=== PATIENT | female | born 1945 | race Caucasian/White ===

== ENCOUNTER 2017-06-26 06:09 | Inpatient (IN) | payer MEDICARE, BC ==
[2017-06-20 14:25] LABS: BASOPHILS % (AUTO) 0.4 % (0-1); EOSINOPHILS # (AUTO) 0.6 X10'3 (0-0.9); EOSINOPHILS % (AUTO) 5.4 % (0-6); LYMPHOCYTES # (AUTO) 1.8 X10'3 (1.1-4.8); MEAN CORPUSCULAR HEMOGLOBIN 29.2 PG (27.0-31.0); MEAN CORPUSCULAR HGB CONC 34.1 % (33.0-36.5); MEAN CORPUSCULAR VOLUME 85.8 FL (78-98); MEAN PLATELET VOLUME 7.2 FL (7.4-10.4); MONOCYTES # (AUTO) 0.9 X10'3 (0-0.9); MONOCYTES % (AUTO) 8.3 % (2-12); NEUTROPHILS # (AUTO) 7.4 X10'3 (1.8-7.7); NEUTROPHILS % (AUTO) 68.9 % (42-75); PRE OP HEMATOCRIT 39.8 % (35.0-45.0); PRE OP HEMOGLOBIN 13.6 g/dL (12.0-16.0); PRE OP PLATELET COUNT 458 X10'3 (140-440); RED BLOOD COUNT 4.64 X10'6 (4.20-5.60); RED CELL DISTRIBUTION WIDTH 15.1 % (11.5-14.5)
[2017-06-20 14:30] LABS: CLARITY,URINE CLEAR (Clear); COLOR,URINE STRAW (Yellow); GLUCOSE, URINE NEGATIVE (Neg); KETONES,URINE NEGATIVE (Neg); LEUKOCYTE ESTERASE ,URINE SMALL (Neg); NITRITES, URINE NEGATIVE (Neg); OCCULT BLOOD,URINE NEGATIVE (Neg); PH,URINE 5.5 (4.8-8.0); PROTEIN,URINE NEGATIVE (Neg); UROBILINOGEN,URINE 0.2 E.U/dL (0.2-1.0)
[2017-06-20 14:31] LABS: UA COLLECTION TYPE CLN CATCH MIDSTREAM
[2017-06-20 14:36] LABS: PRE OP PROTIME 10.3 SECONDS (9.0-12.0)
[2017-06-20 14:39] LABS: MUCUS STRANDS FEW /LPF (Neg); TRANSITIONAL EPI CELLS,URINE MODERATE /HPF
[2017-06-20 14:40] LABS: BACTERIA,URINE FEW /HPF (Neg); RBC,URINE 0-2 /HPF (0-2); SQUAMOUS EPITHELIAL CELL,UR MODERATE /LPF (FEW); WBC,URINE 0-4 /HPF (0-4)
[2017-06-20 14:41] LABS: WBC CLUMPS,URINE FEW /HPF (NEGATIVE)
[2017-06-20 14:42] LABS: ALBUMIN 3.8 G/DL (3.4-5.0); ALKALINE PHOSPHATASE 146 IU/L (46-116); BLOOD UREA NITROGEN 17 MG/DL (7-18); BUN/CREATININE RATIO 14.8 (6.6-38.0); CHLORIDE 103 MMOL/L (99-107); CREATININE 1.15 MG/DL (0.40-0.90); PRE OP ALT 23 U/L (30-65); PRE OP ANION GAP 11 (8-16); PRE OP AST 12 U/L (10-37); PRE OP BILIRUB, TOTAL 0.4 MG/DL (0.0-1.0); PRE OP GLUCOSE 103 MG/DL (70-104); PRE OP POTASSIUM 4.1 MMOL/L (3.4-5.1); PRE OP SODIUM 141 MMOL/L (135-145); TOTAL PROTEIN 7.8 G/DL (6.4-8.2); eGFR 46 ML/MIN
[~2017-06-26] VITALS: Ht 154.9 cm; Wt 83.1 kg
[~2017-06-26 06:09] MED LIST: ALPR-623 PO; FLUO40CA10 PO; LAMO100T2 PO; LEVO100T PO; PRAM0.253 PO; PRAZ5CAP PO; TEMA30CA5 PO; acetaminophen 325mg tablet PO ONE; cefazolin/dext.iso 2gm/50ml 50 ML IV ONE; famotidine 20mg tablet PO ONE; gabapentin 300mg capsule PO ONE; metoclopramide 5 mg/ml inj IV ONE; oxyCODONE SR 10mg (sust. release) tab PO ONE; ringers solution, lacted 1,000 ML IV SCH; tranexamic acid inj. 1,000 MG in normal saline 100ml IV soln 90 ML IV ONE; vancomycin inj 1,500 MG in normal saline 300ml IV soln IV ONE
[2017-06-26] MEDS ORDERED: LIDOcaine 1% (10mg/ml) 2ml vial ONE (06:42)
[2017-06-26] MEDS ORDERED: MORPHINE SULFATE/PF 0.5 MG/ML 10ML AMPUL ONE (07:04)
[2017-06-26] MEDS ORDERED: ketorolac trometh. 30mg/ml inj. ONE (07:04)
[2017-06-26] MEDS ORDERED: ROPIVAcaine 0.5% (5mg/ml) 30ml vial ONE (07:04)
[2017-06-26 07:48] VITALS: BP 123/68
[2017-06-26 07:51] VITALS: BP 123/68
== END 2017-06-26 08:00 | disposition home or self-care (01) | DRG 554 ==
LOC: PAS IN 06:09 → EDSTATUS 08:30
PROVIDERS: ADMIT Orthopaedic Surgery; ATTEND Orthopaedic Surgery
DX: M17.11 Unilateral primary osteoarthritis, right knee (principal); Z53.09 Procedure and treatment not carried out because of other contraindication
CPT/HCPCS: 36415; 80053; 81001; 85025; 85610; 85730; 87070; 87088; 93005; J0690; J1885; J2274; J2795; J3370; J3490; J7030; J7120

== ENCOUNTER 2017-07-17 05:22 | Inpatient (IN) | payer MEDICARE, BC ==
[2017-07-17] VITALS (19 sets, daily range): BP systolic 116–147; BP diastolic 51–90
[~2017-07-17] VITALS: Ht 154.9 cm; Wt 81.6 kg
[~2017-07-17 05:22] MED LIST changes: -acetaminophen 325mg tablet PO ONE; -cefazolin/dext.iso 2gm/50ml 50 ML IV ONE; -famotidine 20mg tablet PO ONE; -gabapentin 300mg capsule PO ONE; -metoclopramide 5 mg/ml inj IV ONE; -oxyCODONE SR 10mg (sust. release) tab PO ONE; -tranexamic acid inj. 1,000 MG in normal saline 100ml IV soln 90 ML IV ONE; -vancomycin inj 1,500 MG in normal saline 300ml IV soln IV ONE
[2017-07-17] MEDS ORDERED: tranexamic acid inj. 1,000 MG in normal saline 100ml IV soln 90 ML IV ONE (05:30)
[2017-07-17] MEDS ORDERED: famotidine 20mg tablet PO ONE ×2 (05:30→12:20)
[2017-07-17] MEDS ORDERED: acetaminophen 325mg tablet PO ONE (05:30)
[2017-07-17] MEDS ORDERED: cefazolin/dext.iso 2gm/50ml 50 ML IV ONE (05:30)
[2017-07-17] MEDS ORDERED: metoclopramide 5 mg/ml inj IV ONE (05:30)
[2017-07-17] MEDS ORDERED: vancomycin inj 1,500 MG in normal saline 300ml IV soln IV ONE (05:30)
[2017-07-17] MEDS ORDERED: gabapentin 300mg capsule PO ONE (05:30)
[2017-07-17] MEDS ORDERED: oxyCODONE SR 10mg (sust. release) tab PO ONE (05:30)
[2017-07-17] MEDS ORDERED: metoclopramide 10mg tablet PO ONE (06:10)
[2017-07-17] MEDS ORDERED: LIDOcaine 1% (10mg/ml) 2ml vial ONE (06:12)
[2017-07-17] MEDS ORDERED: MORPHINE SULFATE/PF 0.5 MG/ML 10ML AMPUL ONE ×3 (06:54→07:39)
[2017-07-17] MEDS ORDERED: ketorolac trometh. 30mg/ml inj. ONE (06:54)
[2017-07-17] MEDS ORDERED: vancomycin 1,000mg inj ONE (06:55)
[2017-07-17] MEDS ORDERED: ROPIVAcaine 0.5% (5mg/ml) 30ml vial ONE ×2 (06:55→07:33)
[2017-07-17] MEDS ORDERED: ceFAZolin 1000mg inj ONE (06:55)
[2017-07-17 06:59] LABS: BASOPHILS % (AUTO) 0.4 % (0-1); EOSINOPHILS # (AUTO) 0.9 X10'3 (0-0.9); EOSINOPHILS % (AUTO) 9.5 % (0-6); LYMPHOCYTES # (AUTO) 1.6 X10'3 (1.1-4.8); LYMPHOCYTES % (AUTO) 15.9 % (21-51); MEAN CORPUSCULAR HEMOGLOBIN 29.6 PG (27.0-31.0); MEAN CORPUSCULAR HGB CONC 34.1 % (33.0-36.5); MEAN CORPUSCULAR VOLUME 86.7 FL (78-98); MEAN PLATELET VOLUME 7.1 FL (7.4-10.4); MONOCYTES # (AUTO) 0.7 X10'3 (0-0.9); NEUTROPHILS # (AUTO) 6.7 X10'3 (1.8-7.7); NEUTROPHILS % (AUTO) 67.2 % (42-75); PRE OP HEMATOCRIT 41.3 % (35.0-45.0); PRE OP HEMOGLOBIN 14.1 g/dL (12.0-16.0); PRE OP PLATELET COUNT 352 X10'3 (140-440); RED BLOOD COUNT 4.77 X10'6 (4.20-5.60); RED CELL DISTRIBUTION WIDTH 14.6 % (11.5-14.5)
[2017-07-17 07:09] LABS: PRE OP PROTIME 10.1 SECONDS (9.0-12.0)
[2017-07-17 07:22] LABS: ALBUMIN 3.7 G/DL (3.4-5.0); ALBUMIN/GLOBULIN RATIO 0.8 (1.1-1.5); ALKALINE PHOSPHATASE 152 IU/L (46-116); BLOOD UREA NITROGEN 17 MG/DL (7-18); CALCIUM 9.4 MG/DL (8.5-10.1); CHLORIDE 102 MMOL/L (99-107); PRE OP ALT 26 U/L (30-65); PRE OP ANION GAP 12 (8-16); PRE OP AST 15 U/L (10-37); PRE OP BILIRUB, TOTAL 0.4 MG/DL (0.0-1.0); PRE OP GLUCOSE 99 MG/DL (70-104); PRE OP POTASSIUM 4.3 MMOL/L (3.4-5.1); PRE OP SODIUM 140 MMOL/L (135-145); TOTAL CARBON DIOXIDE 25.8 MMOL/L (24-32); TOTAL PROTEIN 8.2 G/DL (6.4-8.2); eGFR 54 ML/MIN
[2017-07-17] MEDS ORDERED: midazolam 2 mg/2 ml injection ONE (07:24)
[2017-07-17] MEDS ORDERED: cloNIDine hcl/PF 100mcg/ml inj ONE (07:33)
[2017-07-17] MEDS ORDERED: tetracaine 1% (10mg/ml) pres. free inj. ONE (07:34)
[2017-07-17] MEDS ORDERED: fentaNYL/PF 50MCG/1 ML 2ML syringe ONE (07:39)
[2017-07-17] MEDS ORDERED: MIDAZolam 5mg/ml 2ml vial ONE (07:39)
[2017-07-17] MEDS ORDERED: ePHEDrine 50MG/ML INJ. ONE (08:09)
[2017-07-17] MEDS ORDERED: naloxone 2mg/2ml inj 2 MG in normal saline 500ml IV soln 500 ML IV PRN (08:46)
[2017-07-17] MEDS ORDERED: ringers solution, lacted 1,000 ML IV SCH (08:46)
[2017-07-17] MEDS ORDERED: meperidine/PF 50mg/ml syringe IV PRN ×3 (08:50)
[2017-07-17] MEDS ORDERED: ondansetron/PF 4mg/2ml inj IV PRN ×2 (08:50)
[2017-07-17] MEDS ORDERED: diphenhydrAMINE 50 mg/ml inj IV PRN (08:50)
[2017-07-17] MEDS ORDERED: proCHLORperazine 10 MG/2 ml inj IV PRN (08:50)
[2017-07-17] MEDS ORDERED: morphine 2 MG/ML inj. syringe IV PRN ×3 (08:50→22:35)
[2017-07-17] MEDS ORDERED: propofol inj 20 ML IV ONE (09:06)
[2017-07-17] MEDS ORDERED: diphenhydrAMINE 25mg capsule PO PRN ×2 (10:30)
[2017-07-17] MEDS ORDERED: acetaminophen 325mg tablet PO PRN (10:30)
[2017-07-17] MEDS ORDERED: oxyCODONE IR 5mg (immed. release) tablet PO PRN (10:30)
[2017-07-17] MEDS ORDERED: magnesium hydroxide 30ml (MOM) UD suspension PO PRN (10:30)
[2017-07-17] MEDS ORDERED: bisacodyl 10mg suppository rectal RC PRN (10:30)
[2017-07-17] MEDS ORDERED: HYDROmorphone inj. 0.5 MG/0.5 ML DISP.SYRIN IV PRN (10:30)
[2017-07-17] MEDS ORDERED: tranexamic acid inj. 800 MG in normal saline 100ml IV soln 100 ML IV ONE (14:00)
[2017-07-17] MEDS: gabapentin 300mg capsule PO SCH ×2 (14:42→22:18)
[2017-07-17] MEDS: acetaminophen 325mg tablet PO SCH ×2 (14:44→20:00)
[2017-07-17] MEDS: cefazolin 1gm/NS 100mL 100 ML IV SCH (15:41)
[2017-07-17] MEDS: potassium cl 20mEq in 1/2 NS 1,000 ML IV SCH ×2 (16:40→18:29)
[2017-07-17] MEDS: ondansetron/PF 4mg/2ml inj IV PRN (19:51)
[2017-07-17] MEDS ORDERED: vancomycin/NS 1 GM ADD-VANTAGE 250 ML IV SCH (20:00)
[2017-07-17] MEDS: albuterol 2.5 MG/3 ML nebule NEB PRN (20:22)
[2017-07-17] MEDS: celeCOXIB 100mg capsule PO SCH (20:43)
[2017-07-17] MEDS: oxyCODONE IR 5mg (immed. release) tablet PO PRN (22:10)
[2017-07-17] MEDS: pramipexole 0.25mg tablet PO SCH (22:18)
[2017-07-17] MEDS: lamoTRIgine 100mg tablet PO SCH (22:18)
[2017-07-17] MEDS: prazosin 5mg capsule PO SCH (22:18)
[2017-07-17] MEDS: temazepam 15mg capsule PO SCH (22:19)
[2017-07-17] MEDS: sennosides 8.6mg tablet PO SCH (22:19)
[2017-07-17] MEDS ORDERED: morphine 4 MG/ML inj SYRINge IV PRN (22:35)
[2017-07-18] VITALS (7 sets, daily range): BP systolic 93–149; BP diastolic 53–92
[2017-07-18] MEDS: morphine 4 MG/ML inj SYRINge IV PRN ×2 (00:11→04:43)
[2017-07-18] MEDS: cefazolin 1gm/NS 100mL 100 ML IV SCH (00:11)
[2017-07-18] MEDS: acetaminophen 325mg tablet PO SCH ×4 (02:00→20:11)
[2017-07-18] MEDS: ondansetron/PF 4mg/2ml inj IV PRN (02:38)
[2017-07-18] MEDS: potassium cl 20mEq in 1/2 NS 1,000 ML IV SCH ×3 (02:44→18:10)
[2017-07-18] MEDS: oxyCODONE IR 5mg (immed. release) tablet PO PRN (06:38)
[2017-07-18 07:02] LABS: BASOPHILS % (AUTO) 0.1 % (0-1); EOSINOPHILS # (AUTO) 0.8 X10'3 (0-0.9); EOSINOPHILS % (AUTO) 7.5 % (0-6); HEMATOCRIT 34.6 % (35.0-45.0); HEMOGLOBIN 11.7 g/dl (12.0-16.0); LYMPHOCYTES # (AUTO) 0.9 X10'3 (1.1-4.8); MEAN CORPUSCULAR HEMOGLOBIN 29.5 PG (27.0-31.0); MEAN CORPUSCULAR HGB CONC 33.9 % (33.0-36.5); MEAN CORPUSCULAR VOLUME 87.3 FL (78-98); MEAN PLATELET VOLUME 7.3 FL (7.4-10.4); MONOCYTES % (AUTO) 8.9 % (2-12); NEUTROPHILS # (AUTO) 8.2 X10'3 (1.8-7.7); NEUTROPHILS % (AUTO) 75.5 % (42-75); PLATELET COUNT 280 X10'3 (140-440); RED BLOOD COUNT 3.97 X10'6 (4.20-5.60); RED CELL DISTRIBUTION WIDTH 14.7 % (11.5-14.5); WHITE BLOOD COUNT 10.9 X10'3 (4.5-11.0)
[2017-07-18 07:17] LABS: ANION GAP 9 (8-16); CHLORIDE 100 MMOL/L (99-107); POTASSIUM 4.9 MMOL/L (3.5-5.1); SODIUM 135 MMOL/L (135-145); TOTAL CARBON DIOXIDE 26.2 MMOL/L (24-32)
[2017-07-18] MEDS: celeCOXIB 100mg capsule PO SCH ×2 (09:14→20:11)
[2017-07-18] MEDS: levoTHYROXINE 100mcg tablet PO SCH (09:14)
[2017-07-18] MEDS: enoxaparin 30mg/0.3ml syringe SQ SCH (09:14)
[2017-07-18] MEDS: FLUoxetine 20mg capsule PO SCH (09:15)
[2017-07-18] MEDS: gabapentin 300mg capsule PO SCH ×3 (09:15→20:12)
[2017-07-18] MEDS: albuterol 2.5 MG/3 ML nebule NEB PRN (10:24)
[2017-07-18] MEDS ORDERED: oxyCODONE/APAP 10/325mg tablet PO PRN (10:45)
[2017-07-18] MEDS: oxyCODONE/APAP 10/325mg tablet PO PRN ×3 (11:03→21:52)
[2017-07-18] MEDS: Protein Smoothie (high protein) 240ml (8oz) cup PO SCH (18:00)
[2017-07-18] MEDS: temazepam 15mg capsule PO SCH (20:11)
[2017-07-18] MEDS: sennosides 8.6mg tablet PO SCH (20:11)
[2017-07-18] MEDS: pramipexole 0.25mg tablet PO SCH (20:12)
[2017-07-18] MEDS: prazosin 5mg capsule PO SCH (20:12)
[2017-07-18] MEDS: lamoTRIgine 100mg tablet PO SCH (20:12)
[2017-07-19] MEDS: oxyCODONE/APAP 10/325mg tablet PO PRN ×5 (01:50→17:51)
[2017-07-19] MEDS: acetaminophen 325mg tablet PO SCH ×2 (01:51→07:58)
[2017-07-19] MEDS: albuterol 2.5 MG/3 ML nebule NEB PRN (02:08)
[2017-07-19 05:00] VITALS: BP 117/48
[2017-07-19 06:38] LABS: BASOPHILS % (AUTO) 0.3 % (0-1); EOSINOPHILS # (AUTO) 1.1 X10'3 (0-0.9); EOSINOPHILS % (AUTO) 11.1 % (0-6); HEMATOCRIT 30.8 % (35.0-45.0); HEMOGLOBIN 10.6 g/dl (12.0-16.0); LYMPHOCYTES # (AUTO) 1.2 X10'3 (1.1-4.8); LYMPHOCYTES % (AUTO) 11.5 % (21-51); MEAN CORPUSCULAR HGB CONC 34.6 % (33.0-36.5); MEAN CORPUSCULAR VOLUME 86.7 FL (78-98); MEAN PLATELET VOLUME 7.6 FL (7.4-10.4); MONOCYTES # (AUTO) 1.1 X10'3 (0-0.9); MONOCYTES % (AUTO) 11.4 % (2-12); NEUTROPHILS # (AUTO) 6.6 X10'3 (1.8-7.7); NEUTROPHILS % (AUTO) 65.7 % (42-75); PLATELET COUNT 227 X10'3 (140-440); RED BLOOD COUNT 3.55 X10'6 (4.20-5.60); RED CELL DISTRIBUTION WIDTH 14.3 % (11.5-14.5)
[2017-07-19] MEDS: levoTHYROXINE 100mcg tablet PO SCH (08:00)
[2017-07-19] MEDS: gabapentin 300mg capsule PO SCH ×3 (08:00→20:08)
[2017-07-19] MEDS: celeCOXIB 100mg capsule PO SCH ×2 (08:00→20:09)
[2017-07-19] MEDS: FLUoxetine 20mg capsule PO SCH (08:00)
[2017-07-19] MEDS: enoxaparin 30mg/0.3ml syringe SQ SCH (08:01)
[2017-07-19] MEDS: Protein Smoothie (high protein) 240ml (8oz) cup PO SCH ×3 (09:22→20:08)
[2017-07-19] MEDS ORDERED: acetaminophen 325mg tablet PO PRN (10:30)
[2017-07-19] MEDS: ondansetron/PF 4mg/2ml inj IV PRN (12:28)
[2017-07-19 18:00] VITALS: BP 130/49
[2017-07-19] MEDS: pramipexole 0.25mg tablet PO SCH (20:08)
[2017-07-19] MEDS: sennosides 8.6mg tablet PO SCH (20:08)
[2017-07-19] MEDS: lamoTRIgine 100mg tablet PO SCH (20:09)
[2017-07-19] MEDS: temazepam 15mg capsule PO SCH (20:09)
[2017-07-19] MEDS: prazosin 5mg capsule PO SCH (20:09)
[2017-07-19 22:00] VITALS: BP 125/54
[2017-07-20] MEDS: albuterol 2.5 MG/3 ML nebule NEB PRN ×2 (05:31→12:14)
[2017-07-20 06:00] VITALS: BP 101/43
[2017-07-20 06:34] LABS: BASOPHILS % (AUTO) 0.2 % (0-1); EOSINOPHILS # (AUTO) 0.9 X10'3 (0-0.9); EOSINOPHILS % (AUTO) 8.6 % (0-6); HEMATOCRIT 29.8 % (35.0-45.0); HEMOGLOBIN 10.4 g/dl (12.0-16.0); LYMPHOCYTES # (AUTO) 1.1 X10'3 (1.1-4.8); LYMPHOCYTES % (AUTO) 10.9 % (21-51); MEAN CORPUSCULAR HEMOGLOBIN 29.7 PG (27.0-31.0); MEAN CORPUSCULAR HGB CONC 34.8 % (33.0-36.5); MEAN CORPUSCULAR VOLUME 85.4 FL (78-98); MEAN PLATELET VOLUME 7.5 FL (7.4-10.4); MONOCYTES # (AUTO) 1.2 X10'3 (0-0.9); MONOCYTES % (AUTO) 11.7 % (2-12); NEUTROPHILS # (AUTO) 6.9 X10'3 (1.8-7.7); NEUTROPHILS % (AUTO) 68.6 % (42-75); PLATELET COUNT 261 X10'3 (140-440); RED BLOOD COUNT 3.49 X10'6 (4.20-5.60); RED CELL DISTRIBUTION WIDTH 14.1 % (11.5-14.5); WHITE BLOOD COUNT 10.1 X10'3 (4.5-11.0)
[2017-07-20] MEDS: levoTHYROXINE 100mcg tablet PO SCH (08:58)
[2017-07-20] MEDS: gabapentin 300mg capsule PO SCH ×3 (08:58→20:04)
[2017-07-20] MEDS: ALPRAZolam 0.25mg tablet PO PRN ×2 (08:58→17:43)
[2017-07-20] MEDS: celeCOXIB 100mg capsule PO SCH ×2 (08:58→20:01)
[2017-07-20] MEDS: FLUoxetine 20mg capsule PO SCH (08:58)
[2017-07-20] MEDS: enoxaparin 30mg/0.3ml syringe SQ SCH (08:59)
[2017-07-20] MEDS: Protein Smoothie (high protein) 240ml (8oz) cup PO SCH ×3 (08:59→18:00)
[2017-07-20 11:00] VITALS: BP 119/52
[2017-07-20 13:26] LABS: LIPASE 50 U/L (73-393); PHOSPHORUS 2.9 MG/DL (2.3-4.5); TROPONIN I < 0.04 NG/ML (0.0-0.05)
[2017-07-20 14:18] LABS: CLARITY,URINE Clear (Clear); GLUCOSE, URINE Negative (Neg); KETONES,URINE Negative (Neg); LEUKOCYTE ESTERASE ,URINE Negative (Neg); NITRITES, URINE Negative (Neg); OCCULT BLOOD,URINE Negative (Neg); PROTEIN,URINE Negative (Neg); UA COLLECTION TYPE CLN CATCH MIDSTREAM; UROBILINOGEN,URINE 0.2 E.U/dL (0.2-1.0)
[2017-07-20 14:19] LABS: COLOR,URINE STRAW (Yellow)
[2017-07-20 18:00] VITALS: BP 114/54
[2017-07-20] MEDS: sennosides 8.6mg tablet PO SCH (19:59)
[2017-07-20] MEDS: lamoTRIgine 100mg tablet PO SCH (20:00)
[2017-07-20] MEDS: temazepam 15mg capsule PO SCH (20:00)
[2017-07-20] MEDS: prazosin 5mg capsule PO SCH (20:00)
[2017-07-20] MEDS: pramipexole 0.25mg tablet PO SCH (20:01)
[2017-07-20 20:32] LABS: PROTHROMBIN TIME 10.3 SECONDS (9.0-12.0)
[2017-07-20] MEDS: normal saline 1000ml 1,000 ML IV SCH ×2 (20:33→22:16)
[2017-07-20] MEDS ORDERED: warfarin 5mg tablet PO ONE (21:00)
[2017-07-20 22:00] VITALS: BP 105/46
[2017-07-21] MEDS: ALPRAZolam 0.25mg tablet PO PRN (00:58)
[2017-07-21 05:00] VITALS: BP 123/46
[2017-07-21] MEDS: oxyCODONE/APAP 10/325mg tablet PO PRN (05:44)
[2017-07-21 06:31] LABS: PROTHROMBIN TIME 10.4 SECONDS (9.0-12.0)
[2017-07-21] MEDS: Protein Smoothie (high protein) 240ml (8oz) cup PO SCH (07:55)
[2017-07-21] MEDS: FLUoxetine 20mg capsule PO SCH (08:09)
[2017-07-21] MEDS: levoTHYROXINE 100mcg tablet PO SCH (08:09)
[2017-07-21] MEDS: gabapentin 300mg capsule PO SCH (08:09)
[2017-07-21] MEDS: celeCOXIB 100mg capsule PO SCH (08:09)
[2017-07-21] MEDS: enoxaparin 30mg/0.3ml syringe SQ SCH (08:09)
[2017-07-21 10:23] VITALS: BP 120/50
== END 2017-07-21 13:00 | disposition home or self-care (01) | DRG 470 ==
LOC: PAS IN 05:22 → EDSTATUS 07:30 → ORTHO 4S 11:45
PROVIDERS: ADMIT Orthopaedic Surgery; ATTEND Family Medicine
PROC: 3E0T3BZ Introduction of Anesthetic Agent into Peripheral Nerves and Plexi, Percutaneous Approach (ICD-10-PCS; 2017-07-17)
PROC: 0SRC069 Replacement of Right Knee Joint with Oxidized Zirconium on Polyethylene Synthetic Substitute, Cemented, Open Approach (ICD-10-PCS; principal; 2017-07-17 07:36)
DX: M17.11 Unilateral primary osteoarthritis, right knee (principal); N17.9 Acute kidney failure, unspecified; E66.01 Morbid (severe) obesity due to excess calories; E86.0 Dehydration; N39.0 Urinary tract infection, site not specified; E03.9 Hypothyroidism, unspecified; K21.9 Gastro-esophageal reflux disease without esophagitis; F32.9 Major depressive disorder, single episode, unspecified; F41.9 Anxiety disorder, unspecified; M25.751 Osteophyte, right hip; G89.4 Chronic pain syndrome; R09.02 Hypoxemia; Z79.891 Long term (current) use of opiate analgesic; Z79.899 Other long term (current) drug therapy; Z87.891 Personal history of nicotine dependence; Z68.34 Body mass index [BMI] 34.0-34.9, adult
CPT/HCPCS: 36415; 71250; 80051; 80053; 81003; 83036; 83690; 83735; 83880; 84100; 84439; 84443; 84480; 84484; 85025; 85610; 85730; 87070; 93005; 93306; 94640; 94760; 97110; 97116; 97161; 97530; A6455; A7000; C1713; C1758; C1776; C9250; J0690; J0735; J1650; J1885; J2250; J2270; J2274; J2310; J2405; J2704; J2795; J3010; J3370; J3490; J7030; J7120; J8597

== ENCOUNTER 2017-07-26 16:24 | Inpatient (IN) | payer MEDICARE, BC ==
[~2017-07-26] VITALS: Ht 154.9 cm; Wt 83.6 kg
[~2017-07-26 16:24] MED LIST changes: -ringers solution, lacted 1,000 ML IV SCH
[2017-07-26 17:10] LABS: BASOPHILS # (AUTO) 0.1 X10'3 (0-0.2); BASOPHILS % (AUTO) 0.3 % (0-1); EOSINOPHILS # (AUTO) 0.2 X10'3 (0-0.9); EOSINOPHILS % (AUTO) 0.9 % (0-6); HEMATOCRIT 34.5 % (35.0-45.0); HEMOGLOBIN 11.6 g/dl (12.0-16.0); LYMPHOCYTES # (AUTO) 0.8 X10'3 (1.1-4.8); LYMPHOCYTES % (AUTO) 4.4 % (21-51); MEAN CORPUSCULAR HEMOGLOBIN 29.4 PG (27.0-31.0); MEAN CORPUSCULAR HGB CONC 33.8 % (33.0-36.5); MEAN PLATELET VOLUME 6.3 FL (7.4-10.4); MONOCYTES # (AUTO) 1.3 X10'3 (0-0.9); MONOCYTES % (AUTO) 6.8 % (2-12); NEUTROPHILS % (AUTO) 87.6 % (42-75); PLATELET COUNT 293 X10'3 (140-440); RED BLOOD COUNT 3.96 X10'6 (4.20-5.60); RED CELL DISTRIBUTION WIDTH 14.9 % (11.5-14.5); WHITE BLOOD COUNT 19.4 X10'3 (4.5-11.0)
[2017-07-26 17:22] LABS: D-DIMER 3.32 MG/L FEU (0-0.50); INR 1.1 INR; PARTIAL THROMBOPLASTIN TIME 36 SECONDS (22-32); PROTHROMBIN TIME 11.4 SECONDS (9.0-12.0)
[2017-07-26 17:32] LABS: ALANINE AMINOTRANSFERASE 21 U/L (12-78); ALBUMIN 2.9 G/DL (3.4-5.0); ALBUMIN/GLOBULIN RATIO 0.6 (1.1-1.5); ALKALINE PHOSPHATASE 131 IU/L (46-116); ANION GAP 12 (8-16); ASPARTATE AMINO TRANSFERASE 24 U/L (10-37); BILIRUBIN,TOTAL 0.6 MG/DL (0.1-1.0); BLOOD UREA NITROGEN 9 MG/DL (7-18); BUN/CREATININE RATIO 9.1 (6.6-38.0); CALCIUM 8.6 MG/DL (8.5-10.1); CHLORIDE 100 MMOL/L (99-107); CREATININE 0.99 MG/DL (0.40-0.90); GLUCOSE 182 MG/DL (70-104); MAGNESIUM 2.2 MG/DL (1.5-2.4); POTASSIUM 3.8 MMOL/L (3.5-5.1); SODIUM 137 MMOL/L (135-145); TOTAL CARBON DIOXIDE 25.5 MMOL/L (24-32); TOTAL PROTEIN 7.5 G/DL (6.4-8.2); eGFR 55 ML/MIN
[2017-07-26] MEDS ORDERED: enoxaparin 100mg/ml syringe SUBCUT ONE (17:35)
[2017-07-26] MEDS ORDERED: morphine 4 MG/ML inj SYRINge IV ONE ×2 (17:45→20:50)
[2017-07-26] MEDS ORDERED: ZIPR40CA2 PO (17:55)
[2017-07-26] MEDS ORDERED: NYST50002 PO (17:55)
[2017-07-26] MEDS ORDERED: LISD60CA PO (17:55)
[2017-07-26] MEDS ORDERED: METH-360 PO (17:55)
[2017-07-26] MEDS ORDERED: LAMO100T89 PO (17:55)
[2017-07-26] MEDS ORDERED: RISP0.5T3 PO (17:55)
[2017-07-26] MEDS ORDERED: SIME180C34 PO (17:55)
[2017-07-26] MEDS ORDERED: heparin 10,000 units/1 ML INJ IV PRN (18:00)
[2017-07-26] MEDS ORDERED: heparin 10,000 units/1 ML INJ IV ONE (18:00)
[2017-07-26] MEDS ORDERED: metoprolol tartrate 1mg/ml inj IV ONE (18:10)
[2017-07-26] MEDS: nitroGLYCERIN 0.4mg SUBLingual tab SL PRN ×2 (18:16→19:11)
[2017-07-26] MEDS: tirofiban 5mg in NS 100mL 100 ML IV SCH (18:59)
[2017-07-26] MEDS ORDERED: nitroGLYCERIN 1gm ointment UD TP ONE (20:50)
[2017-07-26] MEDS ORDERED: temazepam 15mg capsule PO PRN (21:00)
[2017-07-26] MEDS: normal saline 1000ml 1,000 ML IV SCH ×2 (21:20→23:00)
[2017-07-26] MEDS ORDERED: magnesium Cl slow-release 64mg tablet PO PRN (22:00)
[2017-07-26] MEDS ORDERED: potassium Cl 40MEQ/NS 500ml 500 ML IV PRN ×2 (22:00)
[2017-07-26] MEDS ORDERED: magnesium 4gm in 100ml NS 100 ML IV PRN (22:00)
[2017-07-26] MEDS ORDERED: potassium Cl 20 mEq SR tablet PO PRN ×2 (22:00)
[2017-07-26] MEDS ORDERED: mag hydrox/Alum hydrox/simeth 30ml oral suspension PO PRN (22:00)
[2017-07-26] MEDS ORDERED: ondansetron/PF 4mg/2ml inj IV PRN (22:00)
[2017-07-26] MEDS ORDERED: morphine 4 MG/ML inj SYRINge IV PRN (22:00)
[2017-07-26] MEDS ORDERED: magnesium hydroxide 30ml (MOM) UD suspension PO PRN (22:00)
[2017-07-26] MEDS ORDERED: magnesium 2GM in 50ml NS 50 ML IV PRN (22:00)
[2017-07-26] MEDS ORDERED: acetaminophen 325mg tablet PO PRN (22:00)
[2017-07-26 23:19] LABS: HEMOGLOBIN A1C 5.5 % (4.5-6.2)
[2017-07-26 23:30] VITALS: BP 150/61
[2017-07-27] VITALS (14 sets, daily range): BP systolic 109–146; BP diastolic 48–74
[2017-07-27] MEDS: tirofiban 5mg in NS 100mL 100 ML IV SCH (00:55)
[2017-07-27] MEDS: normal saline 1000ml 1,000 ML IV SCH ×2 (01:17→08:21)
[2017-07-27] MEDS: morphine 4 MG/ML inj SYRINge IV PRN ×2 (01:26→07:14)
[2017-07-27 06:42] LABS: BASOPHILS % (AUTO) 0.1 % (0-1); EOSINOPHILS # (AUTO) 0.5 X10'3 (0-0.9); EOSINOPHILS % (AUTO) 2.9 % (0-6); HEMATOCRIT 34.4 % (35.0-45.0); HEMOGLOBIN 11.8 g/dl (12.0-16.0); LYMPHOCYTES # (AUTO) 1.7 X10'3 (1.1-4.8); LYMPHOCYTES % (AUTO) 10.6 % (21-51); MEAN CORPUSCULAR HEMOGLOBIN 29.3 PG (27.0-31.0); MEAN CORPUSCULAR HGB CONC 34.3 % (33.0-36.5); MEAN CORPUSCULAR VOLUME 85.6 FL (78-98); MEAN PLATELET VOLUME 7.1 FL (7.4-10.4); MONOCYTES # (AUTO) 1.2 X10'3 (0-0.9); MONOCYTES % (AUTO) 7.7 % (2-12); NEUTROPHILS # (AUTO) 12.6 X10'3 (1.8-7.7); NEUTROPHILS % (AUTO) 78.7 % (42-75); PLATELET COUNT 294 X10'3 (140-440); RED BLOOD COUNT 4.02 X10'6 (4.20-5.60); RED CELL DISTRIBUTION WIDTH 14.8 % (11.5-14.5); WHITE BLOOD COUNT 15.9 X10'3 (4.5-11.0)
[2017-07-27 06:58] LABS: ALANINE AMINOTRANSFERASE 25 U/L (12-78); ALBUMIN 2.9 G/DL (3.4-5.0); ALBUMIN/GLOBULIN RATIO 0.6 (1.1-1.5); ALKALINE PHOSPHATASE 127 IU/L (46-116); ANION GAP 11 (8-16); ASPARTATE AMINO TRANSFERASE 51 U/L (10-37); BILIRUBIN,TOTAL 0.6 MG/DL (0.1-1.0); BLOOD UREA NITROGEN 11 MG/DL (7-18); BUN/CREATININE RATIO 13.1 (6.6-38.0); CALCIUM 8.8 MG/DL (8.5-10.1); CHLORIDE 102 MMOL/L (99-107); CHOL/HDL RATIO 4.6 (0.00-4.99); CHOLESTEROL 196 MG/DL (0-200); CREATININE 0.84 MG/DL (0.40-0.90); GLUCOSE 127 MG/DL (70-104); HDL CHOLESTEROL 43 MG/DL (35-60); LDL CHOLESTEROL 118 MG/DL (50-100); MAGNESIUM 2.4 MG/DL (1.5-2.4); POTASSIUM 3.8 MMOL/L (3.5-5.1); SODIUM 140 MMOL/L (135-145); TOTAL CARBON DIOXIDE 26.7 MMOL/L (24-32); TOTAL PROTEIN 7.6 G/DL (6.4-8.2); TRIGLYCERIDES 143 MG/DL (20-135); eGFR 66 ML/MIN
[2017-07-27] MEDS: levoTHYROXINE 100mcg tablet PO SCH (07:25)
[2017-07-27] MEDS: risperiDONE 0.5mg tablet PO SCH ×2 (08:00→20:26)
[2017-07-27] MEDS ORDERED: non-formulary drug (Ziprasidone Hcl (Geodon) 1 CAP) PO SCH (08:00)
[2017-07-27] MEDS ORDERED: METHOCARBAMOL PO SCH (08:00)
[2017-07-27] MEDS: K and/or MAG REPLACEMENT MC SCH (08:00)
[2017-07-27] MEDS ORDERED: levoTHYROXINE 100mcg tablet PO SCH (08:00)
[2017-07-27] MEDS ORDERED: FLUOXETINE HCL PO SCH (08:00)
[2017-07-27] MEDS ORDERED: HYDROmorphone inj. 0.5 MG/0.5 ML DISP.SYRIN IV ONE (08:30)
[2017-07-27] MEDS ORDERED: morphine 2 MG/ML inj. syringe IV ONE (08:35)
[2017-07-27] MEDS ORDERED: nitroGLYCERIN-Tridil 50MG/D5W 250 ML IV ONE (08:58)
[2017-07-27] MEDS ORDERED: midazolam 2 mg/2 ml injection ONE (08:59)
[2017-07-27] MEDS ORDERED: iohexol 350 MG/ML 50ML vial IV ONE (08:59)
[2017-07-27] MEDS ORDERED: LIDOcaine 1%/PF (10mg/ml) 5ml vial ONE (08:59)
[2017-07-27] MEDS ORDERED: heparin 1,000unit/ml 10ml vial 10 ML ONE (08:59)
[2017-07-27] MEDS ORDERED: fentaNYL/PF 50MCG/1 ML 2ML syringe ONE (08:59)
[2017-07-27] MEDS ORDERED: iohexol 350MG/ML 100ml bottle IV ONE (08:59)
[2017-07-27] MEDS ORDERED: HYDROcodone/acetaminophen 5mg/325mg tablet PO PRN (11:10)
[2017-07-27] MEDS: HYDROcodone/acetaminophen 10/325mg tab PO PRN ×2 (11:57→17:28)
[2017-07-27] MEDS: LISDEXAMFETAMINE DIMESYLATE 60 MG PO SCH (12:00)
[2017-07-27] MEDS: cyclobenzaprine 10mg tablet PO SCH (12:00)
[2017-07-27] MEDS: ziprasidone 20mg capsule PO SCH ×2 (12:01→20:27)
[2017-07-27] MEDS: FLUoxetine 20mg capsule PO SCH (12:02)
[2017-07-27 14:42] LABS: ISTAT HGB ART 11.2 g/dl (12.0-16.0); ISTAT Hct ART 33 %PCV (35-48); ISTAT O2 SATURATION ARTERIAL 94 % (95-98); ISTAT SOURCE ART
[2017-07-27 14:42] LABS: ISTAT Hct MIX 33 %PCV (35-48); ISTAT O2 SATURATION MIX VENOUS 64 % (60-80); ISTAT SOURCE MIX
[2017-07-27] MEDS ORDERED: heparin 10,000 units/1 ML INJ IV PRN (16:40)
[2017-07-27] MEDS ORDERED: normal saline 1000ml 1,000 ML IV SCH (16:40)
[2017-07-27] MEDS ORDERED: pramipexole 0.25mg tablet PO SCH (21:00)
[2017-07-27] MEDS ORDERED: lamoTRIgine 100mg tablet PO SCH (21:00)
[2017-07-27] MEDS ORDERED: prazosin 5mg capsule PO SCH (21:00)
[2017-07-28] MEDS: HYDROcodone/acetaminophen 10/325mg tab PO PRN ×2 (00:22→11:21)
[2017-07-28 02:00] VITALS: BP 108/44
[2017-07-28] MEDS: OXAZEpam 15mg capsule PO PRN ×2 (04:12→15:13)
[2017-07-28 05:59] LABS: BASOPHILS # (AUTO) 0.1 X10'3 (0-0.2); BASOPHILS % (AUTO) 0.6 % (0-1); EOSINOPHILS # (AUTO) 0.3 X10'3 (0-0.9); EOSINOPHILS % (AUTO) 2.3 % (0-6); HEMATOCRIT 29.2 % (35.0-45.0); LYMPHOCYTES # (AUTO) 1.3 X10'3 (1.1-4.8); LYMPHOCYTES % (AUTO) 9.9 % (21-51); MEAN CORPUSCULAR HEMOGLOBIN 29.2 PG (27.0-31.0); MEAN CORPUSCULAR HGB CONC 34.4 % (33.0-36.5); MEAN CORPUSCULAR VOLUME 84.8 FL (78-98); MEAN PLATELET VOLUME 6.5 FL (7.4-10.4); MONOCYTES # (AUTO) 1.3 X10'3 (0-0.9); MONOCYTES % (AUTO) 9.9 % (2-12); NEUTROPHILS # (AUTO) 10.5 X10'3 (1.8-7.7); NEUTROPHILS % (AUTO) 77.3 % (42-75); PLATELET COUNT 186 X10'3 (140-440); RED BLOOD COUNT 3.44 X10'6 (4.20-5.60); RED CELL DISTRIBUTION WIDTH 14.7 % (11.5-14.5); WHITE BLOOD COUNT 13.5 X10'3 (4.5-11.0)
[2017-07-28 06:00] VITALS: BP 102/52
[2017-07-28 06:55] LABS: ALANINE AMINOTRANSFERASE 23 U/L (12-78); ALBUMIN 2.8 G/DL (3.4-5.0); ALBUMIN/GLOBULIN RATIO 0.6 (1.1-1.5); ALKALINE PHOSPHATASE 112 IU/L (46-116); ANION GAP 11 (8-16); ASPARTATE AMINO TRANSFERASE 29 U/L (10-37); BILIRUBIN,TOTAL 0.7 MG/DL (0.1-1.0); BLOOD UREA NITROGEN 11 MG/DL (7-18); BUN/CREATININE RATIO 11.3 (6.6-38.0); CALCIUM 8.6 MG/DL (8.5-10.1); CHLORIDE 103 MMOL/L (99-107); CHOL/HDL RATIO 4.2 (0.00-4.99); CHOLESTEROL 175 MG/DL (0-200); CREATININE 0.97 MG/DL (0.40-0.90); GLUCOSE 121 MG/DL (70-104); HDL CHOLESTEROL 42 MG/DL (35-60); LDL CHOLESTEROL 101 MG/DL (50-100); MAGNESIUM 2.3 MG/DL (1.5-2.4); POTASSIUM 3.6 MMOL/L (3.5-5.1); SODIUM 138 MMOL/L (135-145); TOTAL CARBON DIOXIDE 23.6 MMOL/L (24-32); TOTAL PROTEIN 7.2 G/DL (6.4-8.2); TRIGLYCERIDES 161 MG/DL (20-135); eGFR 56 ML/MIN
[2017-07-28] MEDS: levoTHYROXINE 100mcg tablet PO SCH (06:56)
[2017-07-28] MEDS: ziprasidone 20mg capsule PO SCH (06:56)
[2017-07-28] MEDS: FLUoxetine 20mg capsule PO SCH (06:57)
[2017-07-28] MEDS: cyclobenzaprine 10mg tablet PO SCH (06:58)
[2017-07-28] MEDS: risperiDONE 0.5mg tablet PO SCH (06:58)
[2017-07-28] MEDS: LISDEXAMFETAMINE DIMESYLATE 60 MG PO SCH (07:02)
[2017-07-28] MEDS: K and/or MAG REPLACEMENT MC SCH (07:20)
[2017-07-28] MEDS ORDERED: furosemide 40mg/4ml inj IV ONE (08:50)
[2017-07-28 11:00] VITALS: BP 120/43
[2017-07-28] MEDS ORDERED: LEVO125T PO (12:07)
[2017-07-28] MEDS ORDERED: FURO-150 PO (12:57)
[2017-07-28] MEDS ORDERED: CEPH500C5 PO (14:45)
[2017-07-28 15:00] VITALS: BP 123/103
[2017-07-28] MEDS ORDERED: iohexol 350MG/ML 100ml bottle IV ONE (15:15)
[2017-07-28] MEDS ORDERED: LEVO500T2 PO (16:27)
[2017-07-28] MEDS ORDERED: morphine 2 MG/ML inj. syringe IV PRN ×2 (16:29→16:30)
== END 2017-07-28 17:26 | disposition home or self-care (01) | DRG 286 ==
LOC: ER 16:25 → ED HOLD 22:00 → PCU 3S 23:45
PROVIDERS: ADMIT Internal Medicine; ATTEND Family Medicine
PROC: 4A023N8 Measurement of Cardiac Sampling and Pressure, Bilateral, Percutaneous Approach (ICD-10-PCS; 2017-07-27)
PROC: B2111ZZ Fluoroscopy of Multiple Coronary Arteries using Low Osmolar Contrast (ICD-10-PCS; 2017-07-27)
PROC: B2151ZZ Fluoroscopy of Left Heart using Low Osmolar Contrast (ICD-10-PCS; 2017-07-27)
PROC: B32T1ZZ Computerized Tomography (CT Scan) of Left Pulmonary Artery using Low Osmolar Contrast (ICD-10-PCS; principal; 2017-07-28)
PROC: B3201ZZ Computerized Tomography (CT Scan) of Thoracic Aorta using Low Osmolar Contrast (ICD-10-PCS; 2017-07-28)
PROC: B32S1ZZ Computerized Tomography (CT Scan) of Right Pulmonary Artery using Low Osmolar Contrast (ICD-10-PCS; 2017-07-28)
PROC: CB121ZZ Planar Nuclear Medicine Imaging of Lungs and Bronchi using Technetium 99m (Tc-99m) (ICD-10-PCS; 2017-07-28)
DX: R07.89 Other chest pain (principal); N17.0 Acute kidney failure with tubular necrosis; I50.30 Unspecified diastolic (congestive) heart failure; I27.20 Pulmonary hypertension, unspecified; D64.9 Anemia, unspecified; E66.9 Obesity, unspecified; Z68.34 Body mass index [BMI] 34.0-34.9, adult; D72.829 Elevated white blood cell count, unspecified; E03.9 Hypothyroidism, unspecified; I11.0 Hypertensive heart disease with heart failure; E78.5 Hyperlipidemia, unspecified; F31.9 Bipolar disorder, unspecified; F41.1 Generalized anxiety disorder; G25.81 Restless legs syndrome; K30 Functional dyspepsia; R73.9 Hyperglycemia, unspecified; K21.9 Gastro-esophageal reflux disease without esophagitis; M19.90 Unspecified osteoarthritis, unspecified site; Z96.653 Presence of artificial knee joint, bilateral; Z90.710 Acquired absence of both cervix and uterus; Z79.899 Other long term (current) drug therapy; Z87.891 Personal history of nicotine dependence; Z80.1 Family history of malignant neoplasm of trachea, bronchus and lung
CPT/HCPCS: 36415; 71045; 71275; 78582; 80053; 80061; 82803; 82948; 83036; 83735; 83880; 84443; 84484; 85014; 85025; 85347; 85379; 85610; 85730; 87070; 93005; 93306; 93460; 93970; 96374; 96375; 97110; 97116; 99152; 99153; 99285; A4315; A4620; A6257; A9539; A9540; C1769; C1894; J1644; J1940; J2001; J2250; J2270; J2405; J3010; J3246; J3490; J7030; Q9967

== ENCOUNTER 2019-04-22 08:45 | Inpatient (IN) | payer MEDICARE, BC ==
[2019-04-14 12:44] LABS: BASOPHILS # (AUTO) 0.1 X10'3 (0-0.2); BASOPHILS % (AUTO) 1.1 % (0-1); EOSINOPHILS # (AUTO) 0.2 X10'3 (0-0.9); EOSINOPHILS % (AUTO) 2.4 % (0-6); LYMPHOCYTES # (AUTO) 2.1 X10'3 (1.1-4.8); LYMPHOCYTES % (AUTO) 22.2 % (21-51); MEAN CORPUSCULAR HEMOGLOBIN 29.9 PG (27.0-31.0); MEAN CORPUSCULAR HGB CONC 33.9 g/dL (33.0-36.5); MEAN CORPUSCULAR VOLUME 88.2 FL (78-98); MEAN PLATELET VOLUME 7.6 FL (7.4-10.4); MONOCYTES # (AUTO) 0.7 X10'3 (0-0.9); MONOCYTES % (AUTO) 6.9 % (2-12); NEUTROPHILS # (AUTO) 6.5 X10'3 (1.8-7.7); NEUTROPHILS % (AUTO) 67.4 % (42-75); PRE OP HEMATOCRIT 42.2 % (35.0-45.0); PRE OP HEMOGLOBIN 14.3 g/dL (12.0-16.0); PRE OP PLATELET COUNT 388 X10'3 (140-440); RED BLOOD COUNT 4.78 X10'6 (4.20-5.60); RED CELL DISTRIBUTION WIDTH 14.6 % (11.5-14.5)
[2019-04-14 13:09] LABS: ALBUMIN 3.7 G/DL (3.4-5.0); ALBUMIN/GLOBULIN RATIO 0.8 (1.1-1.5); ALKALINE PHOSPHATASE 149 IU/L (46-116); BLOOD UREA NITROGEN 13 MG/DL (7-18); BUN/CREATININE RATIO 13.1 (6.6-38.0); CALCIUM 9.2 MG/DL (8.5-10.1); CHLORIDE 103 MMOL/L (99-107); CREATININE 0.99 MG/DL (0.40-0.90); PRE OP ALT 15 U/L (30-65); PRE OP ANION GAP 12 (8-16); PRE OP AST 14 U/L (10-37); PRE OP BILIRUB, TOTAL 0.3 MG/DL (0.0-1.0); PRE OP GLUCOSE 89 MG/DL (70-104); PRE OP POTASSIUM 3.8 MMOL/L (3.4-5.1); PRE OP SODIUM 141 MMOL/L (135-145); TOTAL CARBON DIOXIDE 26.2 MMOL/L (24-32); TOTAL PROTEIN 8.3 G/DL (6.4-8.2); eGFR 55 ML/MIN
[2019-04-22] VITALS (17 sets, daily range): BP systolic 105–151; BP diastolic 46–97
[~2019-04-22] VITALS: Ht 154.9 cm; Wt 87.1 kg
[~2019-04-22 08:45] MED LIST changes: -ALPR-623 PO; +Cefazolin 2GM/100ML NS IVPB 100 ML IV ONE; +FURO20TA4 PO; -LAMO100T2 PO; +LAMO200T10 PO; -LEVO100T PO; +LEVO137T24 PO; +QUET300T2 PO; -TEMA30CA5 PO; +VANCOMYCIN INJ 1000 MG in NORMAL SALINE 250ml IV.SOLN IV ONE; +ZIPR20CA2 PO; +ZIPR80CA2 PO; +ZOLP10TA5 PO; +cefazolin/dext.iso 2gm/100ml 100 ML IV ONE; +famotidine 10mg tablet PO ONE; +famotidine 20mg tablet PO ONE; +ringers solution, lacted 1,000 ML IV SCH
[2019-04-22] MEDS ORDERED: LAMO100T PO (09:25)
[2019-04-22] MEDS ORDERED: ZIPR80CA10 PO (09:28)
[2019-04-22] MEDS ORDERED: vancomycin 1,000mg inj ONE (10:22)
[2019-04-22] MEDS ORDERED: ceFAZolin 1000mg inj ONE ×2 (10:22→12:46)
[2019-04-22] MEDS ORDERED: ringers solution, lacted 1,000 ML IV SCH (10:43)
[2019-04-22] MEDS ORDERED: morphine 4 MG/ML inj SYRINge IV PRN (10:45)
[2019-04-22] MEDS ORDERED: ondansetron/PF 4mg/2ml inj IV PRN ×3 (10:45→14:50)
[2019-04-22] MEDS ORDERED: HYDROmorphone inj. 0.5 MG/0.5 ML DISP.SYRIN IV PRN ×3 (10:45→14:50)
[2019-04-22] MEDS ORDERED: tranexamic acid inj. 1,000 MG in normal saline 100ml IV soln 100 ML IV ONE (11:20)
[2019-04-22] MEDS ORDERED: tetracaine 1% (10mg/ml) pres. free inj. ONE (12:36)
[2019-04-22] MEDS ORDERED: fentaNYL/PF 50MCG/1 ML 2ML syringe ONE ×2 (12:39→13:59)
[2019-04-22] MEDS ORDERED: MIDAZolam 5mg/5ml vial ONE (12:40)
[2019-04-22] MEDS ORDERED: morphine /PF 1mg/ml 10ml inj. ONE (12:42)
[2019-04-22] MEDS ORDERED: ketamine 50mg/5ml syringe ONE (13:42)
[2019-04-22] MEDS ORDERED: naloxone 2mg/2ml inj 1.7 MG in normal saline 500ml IV soln 500 ML IV PRN (13:47)
[2019-04-22] MEDS ORDERED: diphenhydrAMINE 50 mg/ml inj IV PRN (13:50)
[2019-04-22] MEDS ORDERED: BUPIVAcaine/PF 7.5mg/ml (0.75%) 10ml vial ONE (13:51)
[2019-04-22] MEDS ORDERED: LIDOcaine 1%/PF 5ML 10 MG/ML VIAL ONE (13:51)
[2019-04-22] MEDS ORDERED: diphenhydrAMINE 50 mg/ml inj ONE (13:51)
[2019-04-22] MEDS ORDERED: propofol inj 20 ML IV ONE (13:51)
[2019-04-22] MEDS ORDERED: magnesium hydroxide 30ml (MOM) UD suspension PO PRN (14:50)
[2019-04-22] MEDS ORDERED: bisacodyl 10mg suppository rectal RC PRN (14:50)
[2019-04-22] MEDS ORDERED: acetaminophen 325mg tablet PO PRN (14:50)
[2019-04-22] MEDS ORDERED: HYDROmorphone 1 mg/ml syringe IV PRN (14:50)
[2019-04-22] MEDS ORDERED: diphenhydrAMINE 25mg capsule PO PRN ×2 (14:50)
--- NOTE | 2019-04-22 15:03 | NUR ---
Received from OR via ORTHO BED WITH [facility] , accompanied by Anesthesiologist PANTERA and report given by Anesthesiolgist. PATIENT WITH HIP WRAP, DERRICK, POWDER PACK, + DORSALIS PEDIS, SAULO BALLESTEROS. VSS. DENIES PAIN. SPINAL SENSATION LEVEL IS AT T10. + DP TO RIGHT FOOT. Addendum: 04/22/19 at 1513 by Daryl Ascencio RN, RN Amended: Links added.
--- NOTE | 2019-04-22 16:03 | NUR ---
ALL CRITERIA FOR TRANSFER TO THE FLOOR HAS BEEN ACHIEVED. VSS. BED LOW, CALL LIGHT AND VS. SET IN PLACE. RN PRESENT TO ACCEPT CARE. PATIENT RESTING COMFORTABLY IN BED. BELONGINGS SENT WITH PATIENT. DRESSINGS CDI.JULIOCESAR OREILLY PRESENT TO ACCEPT CARE AND SET UP VS. VSS. DRESSING CDI. Addendum: 04/22/19 at 1629 by Daryl Lizarraga - JULIOCESAR GANDARA Amended: Links added.
[2019-04-22] MEDS: potassium cl 20mEq in 1/2 NS 1,000 ML IV SCH (16:37)
[2019-04-22] MEDS: ceFAZolin 1GM/D5W- ADD-VANTAGE 50 ML IV SCH (17:26)
--- NOTE | 2019-04-22 18:20 | NUR ---
report to Tez GANDARA
[2019-04-22] MEDS ORDERED: tranexamic acid inj. 900 MG in normal saline 100ml IV soln 100 ML IV ONE (18:30)
[2019-04-22] MEDS: oxyCODONE IR 5mg (immed. release) tablet PO PRN ×2 (18:38→22:27)
[2019-04-22] MEDS: lamoTRIgine 100mg tablet PO SCH (19:27)
[2019-04-22] MEDS: ziprasidone 20mg capsule PO SCH (19:29)
[2019-04-22] MEDS: acetaminophen 325mg tablet PO SCH (19:29)
--- NOTE | 2019-04-22 19:50 | NUR ---
pt emesis 300ml. no medications noted. left message on Cross cell phone with no return call.
[2019-04-22] MEDS ORDERED: vancomycin/NS 1 GM ADD-VANTAGE 250 ML IV SCH (20:00)
--- NOTE | 2019-04-22 20:43 | NUR ---
unable to get ahold of Dr. Correa. message left. pt needs additional order for nausea medication. zofran given too recently. will continue to attempt to get ahold of him. pt feeling better. will try to take meds without more nausea medication. pt seems very fixed on getting medications on time. will try to accomodate. explained process and timing challenges to patient. verbalized understanding.
[2019-04-22] MEDS: zolpidem 5mg tablet PO SCH (20:52)
[2019-04-22] MEDS: sennosides 8.6mg tablet PO SCH (20:52)
[2019-04-22] MEDS: gabapentin 300mg capsule PO SCH (20:52)
[2019-04-22] MEDS: prazosin 1mg capsule PO SCH (20:53)
[2019-04-22] MEDS: pramipexole 0.25mg tablet PO SCH (20:53)
[2019-04-22] MEDS: quetiapine 100mg tablet PO SCH (20:53)
[2019-04-22] MEDS ORDERED: proCHLORperazine 10 MG/2 ml inj IV PRN (20:55)
--- NOTE | 2019-04-22 21:01 | NUR ---
dr black in surgery. received return call, orders received
[2019-04-23] MEDS: ceFAZolin 1GM/D5W- ADD-VANTAGE 50 ML IV SCH (00:21)
[2019-04-23] MEDS: potassium cl 20mEq in 1/2 NS 1,000 ML IV SCH ×4 (00:22→22:50)
[2019-04-23 02:55] VITALS: BP 111/55
[2019-04-23] MEDS: acetaminophen 325mg tablet PO SCH ×4 (03:00→19:43)
[2019-04-23] MEDS: oxyCODONE IR 5mg (immed. release) tablet PO PRN (04:53)
[2019-04-23 05:56] LABS: BASOPHILS # (AUTO) 0.1 X10'3 (0-0.2); BASOPHILS % (AUTO) 0.5 % (0-1); EOSINOPHILS # (AUTO) 0.1 X10'3 (0-0.9); EOSINOPHILS % (AUTO) 0.9 % (0-6); HEMATOCRIT 34.3 % (35.0-45.0); HEMOGLOBIN 11.5 g/dl (12.0-16.0); LYMPHOCYTES # (AUTO) 1.2 X10'3 (1.1-4.8); LYMPHOCYTES % (AUTO) 11.2 % (21-51); MEAN CORPUSCULAR HEMOGLOBIN 29.4 PG (27.0-31.0); MEAN CORPUSCULAR HGB CONC 33.7 g/dL (33.0-36.5); MEAN CORPUSCULAR VOLUME 87.4 FL (78-98); MEAN PLATELET VOLUME 7.7 FL (7.4-10.4); MONOCYTES # (AUTO) 1.2 X10'3 (0-0.9); MONOCYTES % (AUTO) 10.8 % (2-12); NEUTROPHILS # (AUTO) 8.2 X10'3 (1.8-7.7); NEUTROPHILS % (AUTO) 76.6 % (42-75); PLATELET COUNT 286 X10'3 (140-440); RED BLOOD COUNT 3.92 X10'6 (4.20-5.60); WHITE BLOOD COUNT 10.8 X10'3 (4.5-11.0)
[2019-04-23 06:00] VITALS: BP 125/48
[2019-04-23 06:23] LABS: ANION GAP 6 (8-16); CHLORIDE 102 MMOL/L (99-107); POTASSIUM 4.5 MMOL/L (3.5-5.1); SODIUM 135 MMOL/L (135-145)
--- NOTE | 2019-04-23 06:28 | NUR ---
Patient in room ORTHO 4013B. I have received report from JOSH GANDARA and had the opportunity to ask questions and assume patient care.
[2019-04-23] MEDS: gabapentin 300mg capsule PO SCH ×3 (07:29→19:40)
[2019-04-23] MEDS: ziprasidone 20mg capsule PO SCH ×2 (07:29→19:43)
[2019-04-23] MEDS: levoTHYROXINE 112mcg tablet PO SCH (07:30)
[2019-04-23] MEDS: levoTHYROXINE 25mcg tablet PO SCH (07:30)
[2019-04-23] MEDS: FLUoxetine 20mg capsule PO SCH (07:30)
[2019-04-23] MEDS: enoxaparin 30mg/0.3ml syringe SQ SCH (07:32)
[2019-04-23] MEDS: furosemide 20MG tablet PO SCH (08:00)
[2019-04-23] MEDS: lamoTRIgine 100mg tablet PO SCH ×2 (08:00→20:08)
--- NOTE | 2019-04-23 08:47 | NUR ---
PER PHYSICAL THERAPY, PT BP RUNNING LOW AND SYMPTOMATIC, DID NOT GET PT UP. HELD FUROSEMIDE DUE TO SYSTOLIC BP RANGING FROM 96 TO 103. LILIAN LOVE NOTIFIED. NO NEW ORDERS.
[2019-04-23 10:00] VITALS: BP 147/54
--- NOTE | 2019-04-23 14:22 | NUR ---
Joint replacement consult: Pt seen by YOANDY for written/verbal high protein ed w/ RD contact information provided. Pt agrees to iain TARIQ; dietary notified. Addendum: 04/23/19 at [address] Amended: Links added.
[2019-04-23 18:00] VITALS: BP 131/50
--- NOTE | 2019-04-23 18:13 | NUR ---
Problems reprioritized. Patient report given, questions answered & plan of care reviewed with JOSH GANDARA.
[2019-04-23] MEDS: pramipexole 0.25mg tablet PO SCH (19:41)
[2019-04-23] MEDS: sennosides 8.6mg tablet PO SCH (19:41)
[2019-04-23] MEDS: celeCOXIB 100mg capsule PO SCH (19:41)
[2019-04-23] MEDS: quetiapine 100mg tablet PO SCH (19:42)
[2019-04-23] MEDS: prazosin 1mg capsule PO SCH (19:42)
[2019-04-23] MEDS: zolpidem 5mg tablet PO SCH (20:08)
[2019-04-23 22:00] VITALS: BP 119/75
[2019-04-23 23:37] VITALS: BP 115/57
--- NOTE | 2019-04-23 23:38 | NUR ---
pt moving and pulling at lines with eyes closed. freq reminders to leave wick in place and oxygen. secured IV and cont pulse ox. rails up and freq rounding. tabs placed.
--- NOTE | 2019-04-24 00:44 | NUR ---
moved pt closer to station and shared room with a sitter to help pt maintain hip precautions. pt continues to try to pull at lines with eyes closed as if dreaming. reorients well.
--- NOTE | 2019-04-24 01:00 | NUR ---
pt pulling at rails, trying to get OOB. doesn't believe staff that she just had hip surgery. believes she is being held hostage. called for reassurance.
[2019-04-24] MEDS: acetaminophen 325mg tablet PO SCH ×3 (01:51→13:35)
--- NOTE | 2019-04-24 02:36 | NUR ---
pt trying to get OOB and yelling that she doesn't trust staff. called . pt demanding to have get her out and take her home.
[2019-04-24] MEDS: oxyCODONE IR 5mg (immed. release) tablet PO PRN (03:00)
--- NOTE | 2019-04-24 03:58 | NUR ---
pharmacy noted that patient may have reaction to neurontin (new med) or withdrawl from xanax that she has not been receiving. at bedside. states that pt did this on last admission as well when medications were not correct. patient calmer with at bedside, but stated "you're not [place]. you're not my ." will continue to monitor.
--- NOTE | 2019-04-24 06:13 | NUR ---
reported to days. noted pt incont urine. slept x1 hour. caution on narcotic pain meds, neurontin and celebrex. day RN will notify this am.
--- NOTE | 2019-04-24 06:13 | NUR ---
Patient in room ORTHO 4010. I have received report from Tez GANDARA and had the opportunity to ask questions and assume patient care.
[2019-04-24 06:15] VITALS: BP 89/56
[2019-04-24] MEDS: potassium cl 20mEq in 1/2 NS 1,000 ML IV SCH (06:50)
--- NOTE | 2019-04-24 07:00 | NUR ---
I spoke with Dr. Correa about concerning behavior of patient last night. Patient became disoriented. I looked in patient med-rec and she takes trmadol for pain and xanex for anxiety. Dr Correa DC'd oxy, gabapentin, and resumed her home meds xanex and tramadol.
[2019-04-24 07:03] LABS: BASOPHILS % (AUTO) 0.2 % (0-1); EOSINOPHILS # (AUTO) 0.2 X10'3 (0-0.9); EOSINOPHILS % (AUTO) 1.6 % (0-6); HEMOGLOBIN 11.1 g/dl (12.0-16.0); LYMPHOCYTES # (AUTO) 1.3 X10'3 (1.1-4.8); LYMPHOCYTES % (AUTO) 9.8 % (21-51); MEAN CORPUSCULAR HEMOGLOBIN 29.4 PG (27.0-31.0); MEAN CORPUSCULAR HGB CONC 33.5 g/dL (33.0-36.5); MEAN CORPUSCULAR VOLUME 87.7 FL (78-98); MEAN PLATELET VOLUME 7.5 FL (7.4-10.4); MONOCYTES # (AUTO) 1.6 X10'3 (0-0.9); MONOCYTES % (AUTO) 12.4 % (2-12); NEUTROPHILS # (AUTO) 9.8 X10'3 (1.8-7.7); PLATELET COUNT 258 X10'3 (140-440); RED BLOOD COUNT 3.76 X10'6 (4.20-5.60); RED CELL DISTRIBUTION WIDTH 13.9 % (11.5-14.5); WHITE BLOOD COUNT 12.9 X10'3 (4.5-11.0)
[2019-04-24] MEDS ORDERED: ALPRAZolam 0.25mg tablet PO PRN (07:10)
[2019-04-24] MEDS: traMADol 50MG tablet PO PRN ×3 (08:03→21:22)
[2019-04-24] MEDS: ziprasidone 20mg capsule PO SCH ×2 (08:03→20:24)
[2019-04-24] MEDS: furosemide 20MG tablet PO SCH (08:03)
[2019-04-24] MEDS: levoTHYROXINE 112mcg tablet PO SCH (08:04)
[2019-04-24] MEDS: levoTHYROXINE 25mcg tablet PO SCH (08:04)
[2019-04-24] MEDS: FLUoxetine 20mg capsule PO SCH (08:04)
[2019-04-24] MEDS: celeCOXIB 100mg capsule PO SCH ×2 (08:04→20:23)
[2019-04-24] MEDS: lamoTRIgine 100mg tablet PO SCH ×2 (08:04→20:24)
[2019-04-24] MEDS: enoxaparin 30mg/0.3ml syringe SQ SCH (08:05)
[2019-04-24 10:00] VITALS: BP 127/51
[2019-04-24] MEDS ORDERED: acetaminophen 325mg tablet PO PRN (14:50)
[2019-04-24 18:00] VITALS: BP 118/63
--- NOTE | 2019-04-24 18:37 | NUR ---
Problems reprioritized. Patient report given, questions answered & plan of care reviewed with Nina GANDARA.
--- NOTE | 2019-04-24 19:09 | NUR ---
Patient in room ORTHO 4010. I have received report from LULY GANDARA and had the opportunity to ask questions and assume patient care.
[2019-04-24] MEDS: pramipexole 0.25mg tablet PO SCH (20:24)
[2019-04-24] MEDS: sennosides 8.6mg tablet PO SCH (20:24)
[2019-04-24] MEDS: quetiapine 100mg tablet PO SCH (20:25)
[2019-04-24] MEDS: prazosin 1mg capsule PO SCH (20:25)
[2019-04-24] MEDS: zolpidem 5mg tablet PO SCH (20:34)
[2019-04-24 22:00] VITALS: BP 129/56
[2019-04-25 06:10] VITALS: BP 112/58
--- NOTE | 2019-04-25 06:25 | NUR ---
Problems reprioritized. Patient report given, questions answered & plan of care reviewed with Tila GANDARA.
--- NOTE | 2019-04-25 06:30 | NUR ---
Patient in room ORTHO 4010. I have received report from Nina GANDARA and had the opportunity to ask questions and assume patient care.
[2019-04-25 07:04] LABS: BASOPHILS % (AUTO) 0.4 % (0-1); EOSINOPHILS # (AUTO) 0.4 X10'3 (0-0.9); HEMATOCRIT 31.4 % (35.0-45.0); HEMOGLOBIN 10.4 g/dl (12.0-16.0); LYMPHOCYTES # (AUTO) 1.1 X10'3 (1.1-4.8); LYMPHOCYTES % (AUTO) 9.3 % (21-51); MEAN CORPUSCULAR HEMOGLOBIN 29.2 PG (27.0-31.0); MEAN CORPUSCULAR HGB CONC 33.1 g/dL (33.0-36.5); MEAN CORPUSCULAR VOLUME 88.3 FL (78-98); MEAN PLATELET VOLUME 7.7 FL (7.4-10.4); MONOCYTES # (AUTO) 1.2 X10'3 (0-0.9); MONOCYTES % (AUTO) 9.8 % (2-12); NEUTROPHILS # (AUTO) 9.5 X10'3 (1.8-7.7); NEUTROPHILS % (AUTO) 77.5 % (42-75); PLATELET COUNT 292 X10'3 (140-440); RED BLOOD COUNT 3.56 X10'6 (4.20-5.60); RED CELL DISTRIBUTION WIDTH 14.4 % (11.5-14.5); WHITE BLOOD COUNT 12.2 X10'3 (4.5-11.0)
[2019-04-25] MEDS: FLUoxetine 20mg capsule PO SCH (07:54)
[2019-04-25] MEDS: ziprasidone 20mg capsule PO SCH ×2 (07:54→21:10)
[2019-04-25] MEDS: levoTHYROXINE 25mcg tablet PO SCH (07:54)
[2019-04-25] MEDS: celeCOXIB 100mg capsule PO SCH ×2 (07:54→20:54)
[2019-04-25] MEDS: levoTHYROXINE 112mcg tablet PO SCH (07:54)
[2019-04-25] MEDS: lamoTRIgine 100mg tablet PO SCH ×2 (07:54→21:01)
[2019-04-25] MEDS: furosemide 20MG tablet PO SCH (07:55)
[2019-04-25] MEDS: enoxaparin 30mg/0.3ml syringe SQ SCH (07:55)
[2019-04-25] MEDS: traMADol 50MG tablet PO PRN ×3 (07:57→16:48)
[2019-04-25] MEDS ORDERED: ipratropium/albuterol 3ml nebule NEB PRN (10:20)
[2019-04-25 11:00] VITALS: BP 119/52
--- NOTE | 2019-04-25 12:20 | NUR ---
I spoke with Dr. Correa about increase in tramadol dosing to 50 or 100 mgq4h, he ordered to increase it to this amount. I also notified him that patient will not be able to discharge until Saturday because of the confused nights she had.
--- NOTE | 2019-04-25 12:25 | NUR ---
PAGER ID: [phone] MESSAGE: Dr Kenia kay for Karen GANDARA she is treating blood sugar Zoraida Pack again BS 32 gave 2 x dex5 drink, now BS 28 giving 50amps D%IV. Tila Addendum: 04/25/19 at 1225 by Tanya Wadsworth RN D5
[2019-04-25] MEDS ORDERED: traMADol 50MG tablet PO PRN (12:35)
[2019-04-25 18:00] VITALS: BP 109/49
--- NOTE | 2019-04-25 18:26 | NUR ---
Patient report given to Nina GANDARA
--- NOTE | 2019-04-25 18:29 | NUR ---
Patient in room ORTHO 4010. I have received report from Tila GANDARA and had the opportunity to ask questions and assume patient care.
--- NOTE | 2019-04-25 20:15 | NUR ---
Patient in room ORTHO 4010. I have received report from JULIOCESAR Wood and had the opportunity to ask questions and assume patient care.
--- NOTE | 2019-04-25 20:45 | NUR ---
TRANSFER OF CARE TO ALIA GANDARA WITH VERBAL REPORT AT 2014.
[2019-04-25] MEDS: sennosides 8.6mg tablet PO SCH (21:00)
[2019-04-25] MEDS: quetiapine 100mg tablet PO SCH (21:01)
[2019-04-25] MEDS: prazosin 1mg capsule PO SCH (21:02)
[2019-04-25] MEDS: pramipexole 0.25mg tablet PO SCH (21:03)
[2019-04-25 21:49] VITALS: BP 129/49
--- NOTE | 2019-04-25 23:01 | NUR ---
Problems reprioritized. Patient report given, questions answered & plan of care reviewed with JULIOCESAR Wood.
[2019-04-26 06:00] VITALS: BP 124/44
--- NOTE | 2019-04-26 06:51 | NUR ---
Problems reprioritized. Patient report given, questions answered & plan of care reviewed with Magali GANDARA.
[2019-04-26] MEDS: traMADol 50MG tablet PO PRN ×2 (07:07→16:50)
[2019-04-26] MEDS: celeCOXIB 100mg capsule PO SCH ×2 (08:07→19:43)
[2019-04-26] MEDS: FLUoxetine 20mg capsule PO SCH (08:08)
[2019-04-26] MEDS: enoxaparin 30mg/0.3ml syringe SQ SCH (08:08)
[2019-04-26] MEDS: levoTHYROXINE 25mcg tablet PO SCH (08:08)
[2019-04-26] MEDS: levoTHYROXINE 112mcg tablet PO SCH (08:08)
[2019-04-26] MEDS: lamoTRIgine 100mg tablet PO SCH ×2 (08:08→19:44)
[2019-04-26] MEDS: furosemide 20MG tablet PO SCH (08:08)
[2019-04-26] MEDS: ziprasidone 20mg capsule PO SCH ×2 (08:08→20:18)
[2019-04-26 10:00] VITALS: BP 134/53
[2019-04-26 18:00] VITALS: BP 137/46
--- NOTE | 2019-04-26 18:24 | NUR ---
Report to Nina GANDARA
--- NOTE | 2019-04-26 19:21 | NUR ---
Patient in room ORTHO 4010. I have received report from Magali GANDARA and had the opportunity to ask questions and assume patient care.
[2019-04-26] MEDS: sennosides 8.6mg tablet PO SCH (20:16)
[2019-04-26] MEDS: pramipexole 0.25mg tablet PO SCH (20:17)
[2019-04-26] MEDS: prazosin 1mg capsule PO SCH (20:18)
[2019-04-26] MEDS: quetiapine 100mg tablet PO SCH (20:19)
[2019-04-26 22:00] VITALS: BP 106/42
[2019-04-27] MEDS: traMADol 50MG tablet PO PRN (04:44)
[2019-04-27 06:00] VITALS: BP 121/41
--- NOTE | 2019-04-27 06:20 | NUR ---
Problems reprioritized. Patient report given, questions answered & plan of care reviewed with Magali GANDARA .
[2019-04-27] MEDS: levoTHYROXINE 112mcg tablet PO SCH (07:56)
[2019-04-27] MEDS: lamoTRIgine 100mg tablet PO SCH (07:56)
[2019-04-27] MEDS: celeCOXIB 100mg capsule PO SCH (07:56)
[2019-04-27] MEDS: enoxaparin 30mg/0.3ml syringe SQ SCH (07:56)
[2019-04-27] MEDS: furosemide 20MG tablet PO SCH (07:56)
[2019-04-27] MEDS: levoTHYROXINE 25mcg tablet PO SCH (07:56)
[2019-04-27] MEDS: FLUoxetine 20mg capsule PO SCH (07:56)
[2019-04-27] MEDS: ziprasidone 20mg capsule PO SCH (09:38)
--- NOTE | 2019-04-27 14:37 | NUR ---
Initial: Pt s/p arthroplasty of right hip. Pt PO intake avg 75-100% however last 2 meals avg 25-50% on a regular diet. Pt does have adequate stores to offset a temporary calorie deficit, however pt may benefit from ONS if prolonged poor PO intake. RD and sales intern visited pt at bedside, pt reports choking on breakfast this morning and hx of choking on food occasionally resulting in vomiting. RD recommended ST BSS, ST recommend mechanical soft foods and thin liquids, and eating slowly with small bites and sips d/t hiatal hernia and reflux. LBM 04/26 received PRN MoM 04/24. Will continue to monitor. 1. Mechanical soft diet with thin liquids per ST rec 2. monitor need for ONS 3. routine bowel care 4. weight per rx Addendum: 04/27/19 at [address] Amended: Links added. Addendum: 04/27/19 at [address] RD agree with note
== END 2019-04-27 14:20 | DRG 470 ==
LOC: PAS IN 08:45 → EDSTATUS 11:00 → ORTHO 4S 16:10
PROVIDERS: ADMIT Orthopaedic Surgery; ATTEND Orthopaedic Surgery
PROC: 0SR906A Replacement of Right Hip Joint with Oxidized Zirconium on Polyethylene Synthetic Substitute, Uncemented, Open Approach (ICD-10-PCS; principal; 2019-04-22 12:36)
DX: M16.11 Unilateral primary osteoarthritis, right hip (principal); D62 Acute posthemorrhagic anemia; E03.9 Hypothyroidism, unspecified; I25.10 Atherosclerotic heart disease of native coronary artery without angina pectoris; K21.9 Gastro-esophageal reflux disease without esophagitis; I95.9 Hypotension, unspecified; F41.9 Anxiety disorder, unspecified; F31.9 Bipolar disorder, unspecified
CPT/HCPCS: 36415; 72170; 80051; 80053; 82948; 84443; 85025; 86885; 86900; 86901; 87081; 92508; 92616; 94640; 94667; 94760; 97110; 97112; 97116; 97162; 97530; A4215; A4618; A6449; A7000; C1758; C1776; C9250; G0378; J0690; J1200; J1644; J1650; J2250; J2270; J2405; J2704; J3010; J3370; J3480; J3490; J7120